=== PATIENT | female | born 1975 | race Caucasian/White ===

== ENCOUNTER 2024-02-24 18:40 | Emergency (ER) | payer OTHER ==
[~2024-02-24] VITALS: Ht 160 cm; Wt 46.3 kg
[2024-02-24 18:48] VITALS: O2SAT 98
[2024-02-24 19:20] LABS: *BILIRUBIN,URIN NEGATIVE (NEGATIVE); *CLARITY,URINE CLEAR (CLEAR); *COLOR,URINE YELLOW (YELLOW); *KETONES,URINE 1+ (NEGATIVE); *PROTEIN,URINE NEGATIVE (NEGATIVE); *UROBILINOGEN,URINE 0.2 E.U./dl (NORMAL); LEUKOCYTE ESTERASE ,URINE NEGATIVE (NEGATIVE); NITRITE, URINE NEGATIVE (NEGATIVE); UGLUCOSE NEGATIVE (NEGATIVE)
[2024-02-24 19:35] LABS: *BLOOD, URINE TRACE (NEGATIVE)
[2024-02-24 19:36] LABS: *URINE HCG, QUAL NEGATIVE (NEGATIVE)
[2024-02-24 19:45] LABS: BACTERIA,URINE MODERATE /HPF (NONE SEEN); CALCIUM OXALATE CRYSTALS,UR FEW /HPF (NONE SEEN); RBC,URINE 0-3 /HPF (0-3); SQUAMOUS EPITHELIAL CELL,UR MODERATE /HPF (NONE SEEN); WBC,URINE 0-3 /HPF (0-3)
== END 2024-02-24 21:10 | disposition left against medical advice (07) ==
LOC: ER 18:41
DX: N76.2 Acute vulvitis (principal); R10.2 Pelvic and perineal pain; Z88.2 Allergy status to sulfonamides
CPT/HCPCS: 84703; A4606; A4663